=== PATIENT | female | born 1985 | race Two or more races ===

== ENCOUNTER 2025-07-29 21:14 | Emergency (ER) | payer MEDICAID, SELFPAY ==
[2025-07-29 21:14] VITALS: BMI 42.2
[2025-07-29 21:41] VITALS: BP 132/83; PULSE 81; RESP 18; TEMP 36.7; O2SAT 98
--- NOTE | 2025-07-29 22:03 | PD.EDADULT ---
ED General RME/HPI General Chief complaint: Headache Stated complaint: HEADACHE X 1HOUR Time Seen by Provider: 07/29/25 21:58 Arrival date/time: 07/29/25 21:14 CC: Headache HPI bitemporal, onset 2 hours ago no OTC medicines taken including ibuprofen or Tylenol as the patient did not have it with her . Patient denies light sensitivity noise sensitivity nausea or vomiting. No prior history of similar events. Last menstrual cycle was 3 days ago. Patient denies . Patient is dramatic tearful but not in any acute distress with stable vital signs. Related Data Previous Rx's ?Medication ?Instructions ?Recorded acetaminophen 300 mg-codeine 30 mg 2 tab PO Q8H PRN pain #20 tabs 07/30/25 tablet ondansetron 4 mg disintegrating 4 mg PO TID PRN nausea and 07/30/25 tablet vomiting 30 days #10 tabs Allergies Allergy/AdvReac Type Severity Reaction Status Date / Time No Known Allergies Allergy Verified 09/10/18 03:18 Review of Systems Review of Systems Narrative Review of Systems: GEN: No fever, no chills, no weight loss EYES: No discharge, no visual changes, no pain HEENT: No ear pain, no congestion, no sore throat PULM: No shortness of breath, no cough, no congestion CV: No chest pain, no dyspnea on exertion, no palpitations GI: No nausea, no vomiting, no diarrhea, no pain, no constipation : No frequency, no urgency, no dysuria MUSC/SKEL: No joint pain, no back pain SKIN: No rash PSYCH: No hallucinations, no depression HEME/LYMPH: No easy bleeding or bruising tendencies NEURO: No weakness, + headache Past Medical History Past Medical History NEUROLOGIC: Negative Neurological Disorders CARDIAC: Negative Cardiac Disorders or Congestive Heart Failure RESPIRATORY: Negative Chronic Obstructive Pulmonary Disease (COPD) GASTROINTESTINAL: Negative Gastrointestinal Disorders, Hepatitis or Colorectal Cancer GENITOURINARY: Negative Genitourinary Disorders, Renal Disease or Prostate Cancer REPRODUCTIVE: Positive Previous Pregnancies ( X3); Negative Breast Cancer or Testicular Cancer MUSCULOSKELETAL: Negative Musculoskeletal Disorders or Bone Cancer ENDOCRINE: Negative Endocrine Disorders, Diabetes Mellitus Type 1 or Diabetes Mellitus Type 2 HEMATOLOGIC: Negative Blood Disorders OTHER HISTORY: Positive Hospitalization ( X3); Negative Autoimmune Disease, Down Syndrome, Developmental Delay, Shingles, Falls, Blood Transfusions, Anesthesia Reactions, Organ Transplant, Chemotherapy, Radiation Therapy, Hyperbaric Therapy, MRSA, VRSA, Vancomycin-Resistant Enterococci, Human Immunodeficiency Virus (HIV), Chicken Pox, Measles, Mumps, Rubella ([place] Measles), Pertussis, Clostridium Difficile, Cancer, Breast Cancer, Cervical Cancer, Colorectal Cancer, Lung Cancer, Ovarian Cancer, Prostate Cancer or Testicular Cancer Family History FAMILY HISTORY: Positive Family Surgery (PT'S FATHER HAS HAD AN ABOVE THE KNEE AMPUTATION); Negative Family Cancer or Family Anesthesia Reaction Surgical History SURGICAL: Negative Section or Organ Transplant Social History SMOKING STATUS: Never smoker ED Exam Narrative Physical exam: [General: Morbidly obese not in any acute distress Head normocephalic HEENT: Eyes pupils are PERRLA EOMs are intact mouth pink moist membranes uvula is midline swallow symmetrical phonation is normal nose no rhinorrhea all other subsystems of HEENT are within acceptable limits Neck is supple nontender Chest equal chest rise nontender to palpation Respiratory: Clear to auscultation no wheezes crackles or rubs CV: Rate rhythm is regular no murmurs rubs or clicks Abdomen is grossly distended secondary to body habitus soft nontender no masses positive bowel sounds all 4 quadrants Back: No CVA tenderness no spinous process tenderness from cervical spine thoracic and lumbar spine Skin: Intact no petechiae rash induration ulceration or crepitus Extremities: Moving all extremity against resistance cap refill less than 2 seconds neurosensory intact Neuro: Awake alert oriented x3 Glascow coma 15 no focal deficits] cranial nerves II through XII are grossly intact. Course Course Course Narrative: was directed by Dr Rock to order a head CT Quality Measures none Orders Category Date Time Status CT head/brain wo con Stat Exams 07/29/25 22:20 Completed HCG Qualitative,Urine Stat Lab 07/29/25 23:00 Completed ACETAMINOPHEN w/COD 300-30 [Tylenol w/Cod #3] Med 07/29/25 22:31 Discontinued 2 tab PO X1 ONE Ibuprofen Tab [Motrin Tab] Med 07/29/25 22:31 Discontinued 800 mg PO X1 ONE Ketorolac Inj [Toradol Inj] Med 07/29/25 22:02 Discontinued 30 mg IM X1 ONE Ondansetron Odt [Zofran Odt] Med 07/29/25 22:31 Discontinued 4 mg PO X1 ONE Vital Signs Vital signs: Vital Signs Temperature 98.1 F 07/29/25 21:41 Pulse Rate 81 11/03/25 21:41 Respiratory Rate 18 07/29/25 21:41 Blood Pressure 132/83 H 07/29/25 21:41 Pulse Oximetry (%) 98 07/29/25 21:41 Oxygen Delivery Method Room Air 07/29/25 21:41 Discharge Plan Plan Patient Disposition: HOME (Self Care) Prescriptions/Referrals Prescriptions/Med Rec: New acetaminophen-codeine 300-30 mg tablet 2 tab PO Q8H MDD 6 PRN (Reason: pain) Qty: 20 0RF ondansetron 4 mg tablet,disintegrating 4 mg PO TID PRN (Reason: nausea and vomiting) 30 Days Qty: 10 0RF Referrals: Temporary Provider,ED [Physician, Emergency Medicine] - In 1 week Problem List Clinical Impression: Migraine headache Patient/Caregiver Discharge Instructions Discharge Activity: activity as tolerated Education Materials: ED Headache, Migraine, Classic Additional Instructions: Discharge Instructions from Dr. Rock: --After evaluation, you were treated for migraine headache.? Fortunately, there is no life-threatening condition.? Such as stroke or brain tumor. --When you get home, try to get some rest in the dark.? This can be the best treatment for migraine headache. --Try to eat regular nutritious meals, maintain good hydration, decrease stress, and get regular physical exercise.? Increase oral fluid and maintain clear urine.? If dark or yellow, increase oral fluid. --Take Zofran for nausea.? With migraines, controlling your nausea as soon as possible can help. --Tylenol with codeine for severe pain. --See a private doctor of your choice on 07/31/2025 for recheck and further care. Ask to consider a referral to see a neurologist and MRI brain imaging, to make sure there is no other serious underlying conditions. --Seek immediate medical care with worsening or with any concerns.? Instrucciones de denis del Dr. Rock: ?Tras la evaluaci?n, se le trat? por migra?a. Afortunadamente, no se detect? ninguna afecci?n que pusiera en riesgo johnston lay, roxanna un derrame cerebral o un tumor cerebral. ?Al llegar a casa, intente descansar en la oscuridad. [place] puede ser el mejor tratamiento para la migra?a. ?Procure comer regularmente alimentos nutritivos, mantenerse rosamaria hidratado, reducir el estr?s y hacer ejercicio f?sico con regularidad. Aumente la ingesta de l?quidos y procure que johnston orina sea alicia. Si la orina es oscura o amarilla, aumente la ingesta de l?quidos. ?[place] Zofran para las n?useas. En el bucky de las migra?as, controlar las n?useas lo antes posible puede ser de gran ayuda. ?Paracetamol con code?na para el dolor intenso. ?Consulte a un m?dico privado de johnston elecci?n el 5 de 2024 para karsten revisi?n y seguimiento. Solicite karsten derivaci?n a un neur?logo y karsten resonancia magn?millie cerebral para descartar otras afecciones subyacentes graves. --Busque atenci?n m?dica inmediata si empeora o si tiene alguna preocupaci?n. Print Language: Bengali Stand Alone Forms: [place] Award Info., Patient Portal Info Letter MDM Clinical Information Provided by: patient Medical Records reviewed [facility] Meds/Rx considered, not ordered None Labs/Rad/Tests considered, not ordered None Chronic Illness/Social Conditions Explain: Morbid obesity EKG EKG not done Labs Labs: none Imaging Imaging interpretation: none Medication Administration(s) none Medication Administration History Discontinued Medications Acetaminophen/Codeine Phosphate (Acetaminophen W/Cod 300-30 Tablet) 2 tab PO X1 ONE Stop: 07/29/25 22:32 Last Admin: 07/29/25 23:29 Dose: 2 tab Documented By: BARRETT Ibuprofen (Ibuprofen Tab 400 Mg Tablet) 800 mg PO X1 ONE Stop: 07/29/25 22:32 Last Admin: 07/29/25 23:30 Dose: 800 mg Documented By: BARRETT Ketorolac Tromethamine (Ketorolac Inj 30 Mg/Ml Vial) 30 mg IM X1 ONE Stop: 07/29/25 22:03 Last Admin: 07/29/25 22:32 Dose: Not Given Documented By: BARRETT Non-Admin Reason: Discontinued Ondansetron HCl (Ondansetron Odt 4 Mg Tabrap) 4 mg PO X1 ONE; Protocol Stop: 07/29/25 22:32 Last Admin: 07/29/25 23:30 Dose: 4 mg Documented By: BARRETT Diagnosis Differential Diagnosis ED Complaint MDM: Migraine tension headache cluster headache
--- NOTE | 2025-07-29 22:20 | XR_ITS ---
Examination: CT brain head without contrast. 2-D sagittal coronal reconstructions Date and time of exam: July 29 25, 2355 hours INDICATIONS: Headaches beginning 1 hour ago CTDI: vol (mGy): 48.4 DLP: (mGycm): 879 Technique: Multiple CT axial sections of the brain have been obtained, 5 mm slice thickness. Contrast has not been administered. 2-D sagittal, coronal reconstructions have been obtained Low dose protocols were performed. One or more of the following dose reduction techniques were used; automated exposure control, adjustment of the mA and/or KV according to patient size, use of iterative reconstruction technique. Findings: No significant ventricular enlargement. Intra-axial or extra-axial hemorrhage density is not seen. No mass effect or midline shift Basal cisterns are not remarkable. Fourth ventricle is midline. Cranial vault intact. Mild chronic ethmoid maxillary antral sphenoid and frontal sinusitis Impression: Negative for acute hemorrhage, mass effect or midline shift
--- NOTE | 2025-07-29 22:57 | PD.EDADDENDU ---
Emergency Room Addendum Addendum Narrative: I took over the care from previous shift mid-level provider at 11 PM on 07/29/2025. See previous notes for complete H & P and ED course. I reviewed all diagnostic test results. My review of the Head/Brain CT report is no acute findings. Diagnoses include: Migraine Headache Treatment here included Zofran 4 mg Motrin 800 mg Tylenol with Codeine #3 She felt much better. Recommended supportive care. Based on my best medical judgment, made decision no further evaluation or treatment indicated at this time. Patient understands and agrees to the discharge instructions customized and printed, see below. Discharge Instructions from Dr. Rock: --After evaluation, you were treated for migraine headache. Fortunately, there is no life-threatening condition. Such as stroke or brain tumor. --When you get home, try to get some rest in the dark. This can be the best treatment for migraine headache. --Try to eat regular nutritious meals, maintain good hydration, decrease stress, and get regular physical exercise. Increase oral fluid and maintain clear urine. If dark or yellow, increase oral fluid. --Take Zofran for nausea. With migraines, controlling your nausea as soon as possible can help. --Tylenol with codeine for severe pain. --See a private doctor of your choice on 07/31/2025 for recheck and further care. Ask to consider a referral to see a neurologist and MRI brain imaging, to make sure there is no other serious underlying conditions. --Seek immediate medical care with worsening or with any concerns. Malcom Rock MD
[2025-07-29 23:15] LABS: HCG Qualitative,Urine Negative
[2025-07-29] MEDS: ACETAMINOPHEN w/COD 300-30 TABLET 2 TAB PO (23:29)
[2025-07-29] MEDS: IBUPROFEN TAB 400 MG TABLET 800 MG PO (23:30)
[2025-07-29] MEDS: ONDANSETRON ODT 4 MG TABRAP PO (23:30)
[2025-07-30 00:23] VITALS: BP 128/76; PULSE 72; RESP 16; TEMP 37; O2SAT 98
== END 2025-07-30 00:26 | disposition home or self-care (01) ==
PROVIDERS: Emergency Provider Emergency Medicine; PCP Family Medicine
DX: G43.909 Migraine, unspecified, not intractable, without status migrainosus (principal)
CPT/HCPCS: 70450; 81025; 99283; Q0162; A9270